=== PATIENT | female | born 1940 | race Caucasian/White ===

== ENCOUNTER 2019-02-23 13:08 | Emergency (ER) | payer OTHER ==
[~2019-02-23] VITALS: Ht 170.2 cm; Wt 61.2 kg
[~2019-02-23 13:08] MED LIST: ACETAMINOPHEN325 M1 PO; AVELOX 400 MG400 MG PO; HYDROCODONE-AP1 EAC6 PO; LIPITOR20 MG PO; LISINOPRIL2.5 MG PO; NORCO 5-325 TA1 EACH PO; NYSTATIN 1100000 U/M PO; PROTONIX40 M2 PO
[2019-02-23 13:09] VITALS: BP 176/105
[2019-02-23] MEDS ORDERED: TRAMADOL 50 MG50 MG PO (13:59)
[2019-02-23] MEDS ORDERED: IBU400 MG PO (13:59)
== END 2019-02-23 14:10 | disposition home or self-care (01) ==
LOC: ER 13:08
DX: M70.22 Olecranon bursitis, left elbow (principal); I10 Essential (primary) hypertension; E78.5 Hyperlipidemia, unspecified; F17.210 Nicotine dependence, cigarettes, uncomplicated; Y93.89 Activity, other specified